=== PATIENT | female | born 1950 | race Caucasian/White ===

== ENCOUNTER 2018-04-01 07:12 | Day surgery (SDC) | payer OTHER ==
[~2018-04-01 07:12] MED LIST: CARDUR PO; CLONAZEPAM1 MG PO; DIOVAN HCT 160-1 TAB; DIOVAN320 MG PO; LIPITOR20 MG PO; MACROBID 100 M100 MG; METFORMIN HCL500 MG PO; NEXIUM40 M1 PO; PROCARD PO; RESTASIS MULTI5.5 ML OP; SYNTHROID100 MCG PO; TRAVATAN Z5 ML OP; ZETIA10 MG PO; [UNRECOGNIZED DRUG - OTHER]; [UNRECOGNIZED DRUG - OTHER] PO
== END 2018-04-01 13:40 | disposition home or self-care (01) ==
LOC: AMB-ENDOS 07:12
DX: K52.89 Other specified noninfective gastroenteritis and colitis (principal)

== ENCOUNTER 2018-05-25 07:00 | Day surgery (SDC) | payer OTHER ==
[~2018-05-25] VITALS: Ht 165.1 cm; Wt 64.4 kg
[2018-05-26] MEDS ORDERED: NEURONTIN300 MG PO (08:56)
[2018-05-26] MEDS ORDERED: OXYC1TAB9 PO (08:57)
[2018-05-26] MEDS ORDERED: RECTICARE30 GM TOP (08:57)
[2018-05-26] MEDS ORDERED: MACROBID 100 M100 MG PO (08:58)
== END 2018-05-26 09:00 | disposition home or self-care (01) ==
LOC: CIR.AMB 07:00 → SURG 10:01 → O/R 10:01 → CIR.AMB 05-26 09:00 → SURG 05-26 10:27 → O/R 05-26 10:27
DX: N81.6 Rectocele (principal); K57.30 Diverticulosis of large intestine without perforation or abscess without bleeding; K59.09 Other constipation; K31.84 Gastroparesis

== ENCOUNTER → 2019-01-21 | Day surgery (SDC) | payer OTHER ==
[~2019-01-21] MED LIST changes: +ASACOL HD800 MG PO; +MACROBID 100 M100 MG PO; +NEURONTIN300 MG PO; +OXYC1TAB9 PO; +RECTICARE30 GM TOP
== END | disposition home or self-care (01) ==
LOC: EDSTATUS 01-19 12:45 → AMB-ENDOS 06:04
DX: K55.20 Angiodysplasia of colon without hemorrhage (principal)

== ENCOUNTER 2021-03-08 06:28 | Day surgery (SDC) | payer OTHER | END 2021-03-08 10:20 | disposition home or self-care (01) | LOC: AMB-ENDOS 06:28 | PROVIDERS: ATTEND Surgery | DX: K62.89 Other specified diseases of anus and rectum (principal); Z20.822 Contact with and (suspected) exposure to COVID-19 ==

== ENCOUNTER 2021-05-29 11:00 | Inpatient (IN) | payer OTHER ==
[~2021-05-29] VITALS: Ht 154.9 cm; Wt 59.4 kg
[2021-06-05] MEDS ORDERED: RESTASIS1 EACH (08:08)
[2021-06-05] MEDS ORDERED: DALMANE30 MG (08:08)
[2021-06-05] MEDS ORDERED: QUETIAPINE FUMA25 MG (08:09)
[2021-06-05] MEDS ORDERED: DOXAZOSIN MESYLA4 MG (08:09)
[2021-06-05] MEDS ORDERED: ATORVASTATIN CA10 MG (08:09)
[2021-06-05] MEDS ORDERED: TRAVOPROST2.5 ML (08:09)
[2021-06-05] MEDS ORDERED: LUBRICANT EYE D10 M1 (08:09)
[2021-06-05] MEDS ORDERED: CLOPIDOGREL BIS75 MG (08:09)
[2021-06-05] MEDS ORDERED: LOSARTAN POTAS100 MG (08:10)
[2021-06-05] MEDS ORDERED: LEVOTHYROXINE112 MCG (08:10)
[2021-06-05] MEDS ORDERED: BUPROPION HCL150 M1 (08:11)
[2021-06-05] MEDS ORDERED: LEVALBUTEROL TA15 GM (08:11)
[2021-06-05] MEDS ORDERED: AZOPT10 ML (08:11)
[2021-06-05] MEDS ORDERED: AZELASTINE137 MCG/0. (08:11)
[2021-06-05] MEDS ORDERED: POLYMYXIN B-TMP10 ML (08:11)
[2021-06-05] MEDS ORDERED: FLONASE16 GM (08:12)
[2021-06-05] MEDS ORDERED: MONTELUKAST SOD10 MG (08:12)
[2021-06-05] MEDS ORDERED: DILTIAZEM ER120 M2 (08:12)
[2021-06-05] MEDS ORDERED: TIZANIDINE HCL4 MG (08:12)
[2021-06-07] MEDS ORDERED: NEURONTIN300 MG PO (14:01)
[2021-06-07] MEDS ORDERED: INTESTINEX680 M1 PO (14:02)
[2021-06-07] MEDS ORDERED: ULTRAM50 MG PO (14:04)
== END 2021-06-07 14:11 | disposition home or self-care (01) | DRG 331 ==
LOC: O/R 06-04 07:00 → SURG 06-04 07:00
PROVIDERS: ADMIT Surgery; ATTEND Surgery
PROC: 0DNW4ZZ Release Peritoneum, Percutaneous Endoscopic Approach (ICD-10-PCS; 2021-06-04)
PROC: 0DJD8ZZ Inspection of Lower Intestinal Tract, Via Natural or Artificial Opening Endoscopic (ICD-10-PCS; 2021-06-04)
PROC: 0DBN4ZZ Excision of Sigmoid Colon, Percutaneous Endoscopic Approach (ICD-10-PCS; principal; 2021-06-04 10:30)
PROC: 4A12X4Z Monitoring of Cardiac Electrical Activity, External Approach (ICD-10-PCS; 2021-06-05)
DX: K59.02 Outlet dysfunction constipation (principal); E11.9 Type 2 diabetes mellitus without complications; I10 Essential (primary) hypertension; I34.1 Nonrheumatic mitral (valve) prolapse; F32.9 Major depressive disorder, single episode, unspecified; K66.0 Peritoneal adhesions (postprocedural) (postinfection); F41.9 Anxiety disorder, unspecified; J45.20 Mild intermittent asthma, uncomplicated; K57.30 Diverticulosis of large intestine without perforation or abscess without bleeding